=== PATIENT | male | born 1980 | race Caucasian/White ===

== ENCOUNTER 2021-05-25 09:13 | Outpatient (CLI) | payer BC, SELFPAY ==
--- NOTE | ~2021-05-25 | XR_ITS ---
XR abdomen/kub 1V DATE: 05/25/2021 09:25 INDICATION: Left abdominal pain. Left kidney stone. TECHNIQUE: AP projection, 2 views COMPARISON: 11/26/2018 KUB FINDINGS: Approximately 4 mm calcified calculus, lower pole of left kidney. No visceromegaly is evident. The psoas shadows are intact. No evidence of bowel obstruction. Included skeletal structures are unremarkable. IMPRESSION: Approximately 4 mm lower pole left renal calcified calculus Reviewed, dictated and finalized at [facility]. Reviewed, dictated and finalized at [facility].
== END 2021-05-25 09:14 | disposition home or self-care (01) ==
PROVIDERS: PCP Nurse Practitioner Family; Visit Provider Urology
DX: N20.0 Calculus of kidney (principal)
CPT/HCPCS: 74018